=== PATIENT | female | born 1950 | race Two or more races ===

== ENCOUNTER → 2025-03-04 | Outpatient (CLI) | payer MEDICARE, MEDICAID, SELFPAY ==
--- NOTE | 2025-03-04 14:30 | XR_ITS ---
Examination: Bone densitometry Date and time of exam:March 04, 2025 1516 hours INDICATIONS: Hysterectomy age 14 Technique: Lumbar spine and hip total bone mineralization values of an calculated. Peak reference and age match control results have been displayed. Findings: Lumbar spine total bone mineralization is1.023 gm/cm2. This is 0.2 standard deviations below peak reference. This is 2.2 standard deviations above age-matched controls. Hip total bone mineralization is 1.119 gm/cm2 This is 1.2 standard deviations above peak reference. This is 3.0 standard deviations above age-matched controls Impression: There is normal mineralization based on lumbar spine measurements. There is normal mineralization based on hip measurements
--- NOTE | 2025-03-04 15:15 | XR_ITS ---
Examination: Screening digital mammography, bilateral Computer aided detection 3-D breast Tomosynthesis, bilateral Date and time of exam: March 04, 2025 1442 hours Compared to mammograms dating to August 06, 2016 Indication: Screening Technique: Nonmagnified MLO, CC views of the breasts to been obtained, reconstructed from 3-D Tomosynthesis images. R2 computer aided detection program utilized for evaluation of suspicious masses and/or abnormal calcifications. 3-D Tomosynthesis images obtained. Findings: Scattered areas of fibroglandular density. Numerous bilateral benign calcifications. No interval suspicious masses Impression: BI-RADS category II: Benign Findings. Recommend 1 year follow-up mammogram.
== END | disposition home or self-care (01) ==
LOC: CDIM 14:23
PROVIDERS: Referring Provider Nurse Practitioner Family; Visit Provider Nurse Practitioner Family
DX: Z12.31 Encounter for screening mammogram for malignant neoplasm of breast (principal); R92.323 Mammographic fibroglandular density, bilateral breasts; R92.1 Mammographic calcification found on diagnostic imaging of breast; M81.0 Age-related osteoporosis without current pathological fracture
CPT/HCPCS: 77063; 77067; 77080

== ENCOUNTER 2025-08-19 19:43 | Emergency (ER) | payer MEDICARE, MEDICAID, SELFPAY ==
[2025-08-19 19:43] VITALS: BMI 40.7
--- NOTE | 2025-08-19 20:07 | PD.EDABDPN ---
ED Abdominal Pain RME/HPI General Chief Complaint: Abdominal Pain Stated complaint: CONSTIPATION Time seen by provider: 08/19/25 19:58 Arrival date/time: 08/19/25 19:43 RME / HPI RME / HPI narrative: Dr. Weir?s Main ED Evaluation: 75yo female presenting with constipation/rectal urgency and some degree of pain. No recent fever or chills. No vomiting reported. Last normal bowel movement was ~5 days [employer]. Patient's [id number] administered Dulcolax liquid earlier today. PMH includes HTN, HLD, no history of DM, previous IL, or CHF. PSH includes cholecystectomy, hysterectomy. Nondrinker, nonsmoker. Related Data Home Medications ?Medication ?Instructions ?Recorded ?Confirmed olanzapine 5 mg tablet 5 mg PO QHS 11/24/18 11/17/23 amlodipine 10 mg tablet 10 mg PO QDAY 11/17/23 11/17/23 bisacodyl 5 mg tablet 5 mg PO QDAY 11/17/23 11/17/23 brexpiprazole 1 mg tablet (Rexulti) 1 mg PO QDAY 11/17/23 11/17/23 celecoxib 200 mg capsule 200 mg PO QDAY 11/17/23 11/17/23 Held on 11/17/23. Instructions: Resume on 11/24/23. cyclobenzaprine 10 mg tablet 10 mg PO QDAY 11/17/23 11/17/23 ibuprofen 400 mg tablet 400 mg PO QID PRN Pain 11/17/23 11/17/23 Held on 11/17/23. Instructions: Resume on 11/24/23. vibegron 75 mg tablet (Gemtesa) 75 mg PO QDAY 11/17/23 11/17/23 Previous Rx's ?Medication ?Instructions ?Recorded bisacodyl 10 mg rectal suppository 10 mg ME QDAY 1 day #12 ea 08/20/25 (Dulcolax (bisacodyl)) hydrocortisone acetate 25 mg 25 mg ME BID #12 ea 08/20/25 rectal suppository (Anusol-HC) polyethylene glycol 3350 17 17 g PO QDAY #238 grams 08/20/25 gram/dose oral powder (ClearLax) Allergies Allergy/AdvReac Type Severity Reaction Status Date / Time No Known Allergies Allergy Verified 10/05/21 21:11 Review of Systems Review of Systems Systems Reviewed: All systems reviewed, normal except as documented Past Medical History Past Medical History NEUROLOGIC: Positive Neurological Disorders and Parkinson's Disease; Negative Seizures CARDIAC: Positive Cardiac Disorders and Hypertension; Negative Congestive Heart Failure RESPIRATORY: Negative Chronic Obstructive Pulmonary Disease (COPD), Tuberculosis or Sleep Apnea GASTROINTESTINAL: Positive Gastrointestinal Disorders and Gastroesophageal Reflux Disease GENITOURINARY: Negative Genitourinary Disorders or Renal Disease REPRODUCTIVE: Positive Previous Pregnancies; Negative Endometriosis or Pelvic Inflammatory Disease MUSCULOSKELETAL: Negative Musculoskeletal Disorders ENDOCRINE: Negative Endocrine Disorders, Diabetes Mellitus Type 1 or Diabetes Mellitus Type 2 HEMATOLOGIC: Positive Anemia; Negative Blood Disorders PSYCHO/SOCIAL: Positive Depression and Anxiety OTHER HISTORY: Negative Autoimmune Disease, Developmental Delay, Falls, Blood Transfusions or Anesthesia Reactions Family History FAMILY HISTORY: Negative Family Anesthesia Reaction Surgical History SURGICAL: Positive Hysterectomy; Negative Cardiac Surgery Social History SMOKING STATUS: Never smoker SUBSTANCE USE: does not use ED Exam Narrative Physical exam: GENERAL APPEARANCE: alert and oriented x 4, obese, well-developed, well-nourished, nontoxic, no acute distress VITALS: All vitals were reviewed and the pulse ox is % on room air, which is normal according to my interpretation. 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, hard brown stool in the rectal vault, hemoccult positive, tender external hemorrhoids without any active bleeding EXTREMITIES: atraumatic; no edema NEUROLOGIC: awake; alert and oriented x4; cranial nerves II-XII grossly intact; no focal sensory or motor deficits PSYCHIATRIC: appropriate mood and affect SKIN: warm, dry, normal color; no rashes Course Quality Measures none Orders Category Date Time Status EKG (ED ONLY) *Do not use* NOW Care 08/20/25 02:13 Completed IV [Insert IV] NOW Care 08/19/25 23:43 Active Occult Blood,Stool (Nursing) NOW Care 08/19/25 23:33 Active Soap Suds [Enema Administration] NOW Care 08/20/25 00:[address] abdomen pelvis wo con Stat Exams 08/19/25 23:51 Taken EKG (ED Only) Stat Exams 08/20/25 02:12 Draft XR abdomen series w chest 1V Stat Exams 08/19/25 20:18 Completed CBC [CBC] Stat Lab 08/19/25 20:30 Completed CMP [Comprehensive Metabolic Panel] Stat Lab 08/19/25 20:30 Completed TSH [Thyroid Stimulating Hormone] Stat Lab 08/19/25 20:30 Completed Urinalysis, C/S if Indicated Stat Lab 08/19/25 22:16 Completed Urine Culture Stat Lab 08/19/25 22:16 Received Morphine* Inj Med 08/20/25 00:02 Discontinued 4 mg IVP X1 ONE Morphine* Inj Med 08/20/25 03:07 Discontinued 4 mg IVP X1 ONE Ondansetron Inj [Zofran Inj] Med 08/20/25 00:03 Discontinued 4 mg IVP X1 ONE Prochlorperazine Inj [Compazine Inj] Med 08/20/25 03:07 Discontinued 2 mg IVP X1 ONE Sodium Chloride 0.9% 1000 ml [Ns] 1,000 ml Med 08/20/25 00:02 Discontinued IV 999 mls/hr Sodium Chloride 0.9% 1000 ml [Ns] 1,000 ml Med 08/20/25 02:29 Discontinued IV 999 mls/hr Sodium Chloride 0.9% 500 ml [Ns] 500 ml Med 08/20/25 03:53 Active IV 999 mls/hr Vital Signs Vital signs: Vital Signs Temperature 98.1 F 08/19/25 21:05 Pulse Rate 116 H 08/19/25 21:05 Respiratory Rate 19 08/19/25 21:05 Blood Pressure 166/86 H 08/19/25 21:05 Pulse Oximetry (%) 93 L 08/19/25 21:05 Oxygen Delivery Method Room Air 08/19/25 21:05 PROCEDURES: Rectal Disimpaction Time out performed rectal disimpaction: No Indication: fecal impaction Procedural Sedation: No Sedation/Analgesia: none Technique: manual disimpaction with gloved finger Result: significant stool output Patient Tolerated Procedure: well and no complications Abdominal Pain MDM MDM Narrative MDM Narrative:: Scribe Attestation: 08/19/25 Jojo Eagle am scribing for and in the presence of Dr. Weir. 75yo female presenting with constipation/rectal urgency and some degree of pain. No recent fever or chills. No vomiting reported. Last normal bowel movement was ~5 days [employer]. Please see PE findings. Lab markers including CBC and chemistries are essentially unremarkable. UA demonstrates pyuria without bacteria. Routine abdominal x-ray demonstrates a colonic ileus. Patient underwent disimpaction of the rectal vault via manual extraction and will be given a soap suds enema. Patient had received an oral laxative [employer] and had began to move her bowels at the end of her ED stay. Will consult hospitalist for consideration of admission to ensure full evacuation. Patient with ongoing bowel evacuation related to initial stimulant laxative in addition to fecal disimpaction. Patient complains of mild discomfort, although remained nontoxic without signs of sepsis. Patient considered stable for discharge after period of observation while patient receives IVF hydration. Dx: fecal impaction, colonic ileus, hemoccult positive stool Patient data External records reviewed:: [facility] previous records (Per chart review, patient was seen here on 10/06/21 for dizziness.) Clinical information provided by:: patient Social determinants that could affect healthcare access:: none Patient has the following chronic illnesses:: Parkinson's, HTN, GERD How is presenting disease/condition affected by chronic disease/condition?: uneffected by Evaluation data The following diagnostics were reviewed and interpreted by me:: lab results, radiology exam(s) and EKG tracing(s) (EKG done at 0236, sinus tachycardia, rate of 113, no acute pathological ST segment changes, 1st degree AV block, occasional ventricular ectopy, left axis deviation, according to my interpretation.) Lab and/or radiology exams considered but not ordered:: none Interpretation Summary: [facility] Report Signed Patient: GLENNA ZUNIGA Record#: [id number] Birthdate: 1950 Age/Sex: 75 / F Location: [facility] Attending Dr: Ordering Physician: Steve Anguiano DO Date of Service: 08/19/25 Procedure(s): XR abdomen series w chest 1V Accession Number(s): [id number] cc: Steve Anguiano DO; Alexus Palafox NP; Santo Basilio MD~ EXAMINATION: Abdomen series 3 views including PA chest TECHNIQUE: Upright PA chest AP upright AP supine abdomen 3 views Date and time: August 19, 2025, 2032 hours INDICATIONS: Abdominal pain and constipation beginning 2 days ago. FINDINGS: Prominent central pulmonary arteries, consider pulmonary artery hypertension Mild prominence left ventricle Moderate colonic ileus Dilated small bowel loops are not depicted No free air Surgical clips in the upper right abdomen IMPRESSION: Pulmonary artery hypertension Moderate colonic ileus Dictated By: Santo Basilio MD Signed By: <Electronically signed by Santo Basilio MD in OV> 08/19/252148 [place] Preliminary Report Draft Patient: GLENNA ZUNIGA. Record#: [id number] Birthdate: 1950 Age/Sex: 75 / F Location: [facility] Attending Dr: Ordering Physician: Date of Service: Procedure(s): Accession Number(s): cc: ~ CT scan of the abdomen and pelvis without intravenous contrast (axial sections with sagittal and coronal reformats) August 20, 2025 0027 hours Clinical History: Obstruction Comparison: None available at the time of this report. Findings: The lung bases are clear. The liver, pancreas, spleen, kidneys and adrenals are unremarkable on this noncontrast study. S/p cholecystectomy. No evidence of bowel obstruction. The appendix is within normal limits. There is no mesenteric or retroperitoneal adenopathy. The urinary bladder is nondistended, limited evaluation. Yao catheter in place. Air within the urinary bladder. There is no free fluid or free air. The osseous structures are unremarkable. Small hiatus hernia. Impacted stones in the rectum. S/p hysterectomy. Impression: 1. Impacted stools in the rectum. 2. No evidence of bowel obstruction. 3. Possible cystitis. Please, correlate clinically. 4. Small hiatus hernia. Report Electronically Signed By: Ozzy Armstrong 08/20/2025 1:32:01 AM [EST] Medications / Prescriptions Medications or Prescriptions considered but not ordered:: none Medication administrations:: Medication Administration History Sodium Chloride (Ns) 500 mls @ 999 mls/hr IV .Q31M ONE Stop: 08/20/25 04:23 Discontinued Medications Sodium Chloride (Ns) 1,000 mls @ 999 mls/hr IV .Q1H1M ONE Stop: 08/20/25 01:02 Last Infusion: 08/20/25 01:45 Dose: Infused Documented By: Admin: 08/20/25 00:35 Dose: 999 mls/hr Documented By: SYD Sodium Chloride (Ns) 1,000 mls @ 999 mls/hr IV .Q1H1M ONE Stop: 08/20/25 03:29 Last Admin: 08/20/25 02:37 Dose: 999 mls/hr Documented By: NAVI Morphine Sulfate (Morphine Sulf Inj 4 Mg/Ml Vial) 4 mg IVP X1 ONE Stop: 08/20/25 00:03 Last Admin: 08/20/25 00:35 Dose: 4 mg Documented By: SYD Morphine Sulfate (Morphine Sulf Inj 4 Mg/Ml Vial) 4 mg IVP X1 ONE Stop: 08/20/25 03:08 Last Admin: 08/20/25 03:18 Dose: 4 mg Documented By: SYD Ondansetron HCl (Ondansetron Inj 2 Mg/Ml Inj 2 Ml) 4 mg IVP X1 ONE; Protocol Stop: 08/20/25 00:04 Last Admin: 08/20/25 00:36 Dose: 4 mg Documented By: SYD Prochlorperazine Edisylate (Prochlorperazine Inj 5 Mg/Ml Vial 2 Ml) 2 mg IVP X1 ONE; Protocol Stop: 08/20/25 03:08 Last Admin: 08/20/25 03:18 Dose: 2 mg Documented By: SYD see above, if any Consultations Consultation(s) initiated? (list below): Yes Consultation #1 (Physician, Specialty, Details): Discussed case with the resident physician, attending Dr. Justin from Hospitalist service regarding admission. Discussed patients ED course, exam findings, labs, and radiology results. The Hospitalist will evaluate the patient for admission. Time: 23:54 Consultation #2 (Physician, Specialty, Details): Discussed case with the resident physician, attending Dr. Justin from Hospitalist service regarding admission. Discussed patients ED course, exam findings, labs, and radiology results. Recommends discharging the patient home. Time: 02:25 Diagnosis Differential diagnosis abdominal pain: abdominal pain, constipation, small bowel obstruction and other (ileus, dehydration) Most likely diagnosis given after review of the tests above:: see clinical impression below Admission Indicated Admission indicated?: not indicated Admission Request Was there a request for admission?: No Disposition Plan Disposition Plan: Discharge Discharge Attestation Discharge Attestation: The patient and all family members were given an opportunity to ask questions and understood the discharge instructions. Discharge instructions specifically effects, indications for sooner follow up or return to the emergency department, and the expected course of current diagnosis. Patient condition: Stable Discharge Plan Plan Patient Disposition: HOME (Self Care) Discharge Disposition comment: Stable Prescriptions/Referrals Prescriptions/Med Rec: New polyethylene glycol 3350 [ClearLax] 17 gram/dose powder 17 g PO QDAY Qty: 238 0RF hydrocortisone acetate [Anusol-HC] 25 mg suppository 25 mg ME BID Qty: 12 0RF bisacodyl [Dulcolax (bisacodyl)] 10 mg suppository 10 mg ME QDAY 1 Days Qty: 12 0RF No Action olanzapine 5 mg tablet 5 mg PO QHS Patient Comments: take 1/2 tab daily celecoxib 200 mg capsule 200 mg PO QDAY cyclobenzaprine 10 mg tablet 10 mg PO QDAY Patient Comments: TAKE ONE TABLET BY MOUTH EVERY DAY AT BED TIME amlodipine 10 mg tablet 10 mg PO QDAY Patient Comments: TAKE ONE TABLET BY MOUTH EVERY DAY FOR BLOOD PRESSURE ibuprofen 400 mg tablet 400 mg PO QID PRN (Reason: Pain) Patient Comments: TAKE ONE TABLET BY MOUTH EVERY 6 HOURS WITH FOOD NEEDED FOR PAIN bisacodyl 5 mg Tablet 5 mg PO QDAY Rexulti 1 mg tablet 1 mg PO QDAY Patient Comments: TAKE ONE TABLET BY MOUTH EVERY DAY FOR 30 DAYS Gemtesa 75 mg tablet 75 mg PO QDAY Patient Comments: TAKE ONE TABLET BY MOUTH EVERY DAY Referrals: Alexus Palafox NP [Primary Care Provider] - In 1 week Problem List Clinical Impression: Fecal impaction, Ileus, Hematest positive stools, Constipation Patient/Caregiver Discharge Instructions Discharge Activity: activity as tolerated Diet Instructions: Clear liquid diet for 48 hours. Education Materials: Ileus, Treating Constipation, ED Constipation (Adult), ED Fecal Impaction, Treated Additional Instructions: Clear liquid diet x 24 to 48 hours. Medications as directed. Follow-up with primary care doctor in 3 to 5 days. Return if worsening Print Language: Italian Stand Alone Forms: Polly Award Info., Patient Portal Info Letter
--- NOTE | 2025-08-19 20:18 | XR_ITS ---
EXAMINATION: Abdomen series 3 views including PA chest TECHNIQUE: Upright PA chest AP upright AP supine abdomen 3 views Date and time: August 19, 2025, 2031 hours INDICATIONS: Abdominal pain and constipation beginning 2 days ago. FINDINGS: Prominent central pulmonary arteries, consider pulmonary artery hypertension Mild prominence left ventricle Moderate colonic ileus Dilated small bowel loops are not depicted No free air Surgical clips in the upper right abdomen IMPRESSION: Pulmonary artery hypertension Moderate colonic ileus
[2025-08-19 20:42] LABS: Basophils # (Auto) 0.0 Thou/mm3 (0.0-0.2); Basophils % (Auto) 0 % (0-2.5); Eosinophils # (Auto) 0.2 Thou/mm3 (0.0-0.5); Eosinophils % (Auto) 2 % (0-10); Hematocrit 42.1 % (36.0-46.0); Hemoglobin 14.7 g/dL (12.0-16.0); Immature Granulocytes Auto 0.02 Thou/mm3 (0.00-0.00); Lymphocytes # (Auto) 3.2 Thou/mm3 (1.0-4.8); Lymphocytes % (Auto) 33 % (10-50); Mean Corpuscular HGB Conc 34.9 g/dl (31.0-37.0); Mean Corpuscular Hemoglobin 31.8 pg (25.0-35.0); Mean Corpuscular Volume 91 fL (80-100); Monocytes # (Auto) 0.6 Thou/mm3 (0.0-0.8); Monocytes % (Auto) 7 % (0-12); Neutrophils # (Auto) 5.7 Thou/mm3 (1.8-7.7); Neutrophils % (Auto) 58 % (37-80); Nucleated Red Blood Cell # 0.00 Thou/mm3 (0.00-0.00); Nucleated Red Blood Cell % 0 /100 WBC (0); Platelet Count 279 Thou/mm3 (140-440); RDW Standard Deviation 43.4 fL (36.4-46.3); Red Blood Count 4.62 Miln/mm3 (4.00-5.20); White Blood Count 9.7 Thou/mm3 (3.6-11.0)
[2025-08-19 20:59] LABS: Alanine Aminotransferase 47 U/L (10-49); Albumin, Serum 4.4 gm/dL (3.4-4.8); Albumin/Globulin Ratio 1.3 (1.2-2.2); Alkaline Phosphatase 152 U/L (46-116); Anion Gap 10 (7-16); Aspartate Amino Transferase 36 U/L (0-34); BUN/Creatinine Ratio 12 Ratio (12-20); Bilirubin,Total 0.6 mg/dL (0.3-1.2); Blood Urea Nitrogen 11 mg/dL (9-23); Calcium 10.7 mg/dL (8.3-10.6); Calcium (Corrected) 10.7 mg/dL (8.5-10.1); Carbon Dioxide 23.9 mMol/L (20.0-31.0); Chloride 106 mMol/L (98-107); Creatinine (Component) 0.9 mg/dL (0.6-1.3); Estimated Creatinine Clearance 61.4 mL/min (>60); Globulin 3.4 gm/dL (2.3-3.5); Glucose 137 mg/dL (74-106); Osmolality,Calculated 280 (275-295); Potassium 3.8 mMol/L (3.4-5.1); Sodium 140 mMol/L (136-145); Thyroid Stimulating Hormone 4.80 uIU/mL (0.55-4.78); Total Protein 7.8 gm/dL (5.7-8.2); eGFR > 60 See Note
[2025-08-19 21:05] VITALS: BP 166/86; PULSE 116; RESP 19; TEMP 36.7; O2SAT 93
[2025-08-19 23:23] LABS: Collection Type, Urine Clean Catch
[2025-08-19 23:34] LABS: Bilirubin,Urine Negative (Negative); Blood,Urine Negative (Negative); Clarity,Urine Clear (Clear/Hazy); Color,Urine Yellow (Lt Yel-Yel); Glucose, Urine Negative (Negative); Hyaline Casts,Urine < 1 /hpf (0-1); Ketones,Urine Negative (Negative); Leukocyte Esterase,Urine Negative (Negative); Nitrite,Urine Negative (Negative); PH,Urine 7.0 (5.0-7.0); Protein,Urine Negative (Neg - Trace); RBC,Urine 2 /hpf (0-3); Specific Gravity,Urine 1.020 (1.001-1.035); Squamous Epithelial Cell,Urine 2 /hpf (0-5); Urobilinogen,Urine 3.0 mg/dL (0.0-1.0); WBC,Urine 23 /hpf (0-5)
[2025-08-19 23:35] LABS: Culture Indicated,Urine Yes
[2025-08-19 23:43] VITALS: BP 164/78; PULSE 110; RESP 16; TEMP 36.8; O2SAT 96
--- NOTE | 2025-08-19 23:51 | XR_ITS ---
Examination: CT abdomen and pelvis without contrast. Coronal 3-D reconstructions. Sagittal 2-D reconstructions. Date and time of exam: August 20, 2025, 0028 hours Indication constipation abdominal pain beginning 4 days ago CTDI: vol (mGy): 16.71 DLP: (mGycm): 964 Technique: Axial images of the abdomen have been obtained, 3 mm slice thickness Intravenous contrast material has not been administered. Low dose protocols were performed. One or more of the following dose reduction techniques were used; automated exposure control, adjustment of the mA and/or KV according to patient size, use of iterative reconstruction technique. Findings: No visualized liver or splenic lesion Absent gallbladder No extrahepatic biliary tract dilatation Normal pancreas No renal or ureteral calculi Normal appendix No bowel obstruction Abundant stool in the rectum with thickening of the rectal wall Urinary Yao catheter in the bladder with air density Mild thickening of the urinary bladder wall IMPRESSION: Normal appendix No bowel obstruction Large amounts of stool in the colon with mild thickening of the rectal wall, proctitis pattern Suspicious for cystitis
[2025-08-19 23:57] VITALS: BP 136/62; PULSE 116; RESP 18; TEMP 37.7; O2SAT 96
[2025-08-20] MEDS: MORPHINE SULF INJ 4 MG/ML VIAL IVP ×2 (00:35→03:18)
[2025-08-20] MEDS: SODIUM CHLORIDE 0.9% 1000 ML 1,000 ML 999 ML IV ×2 (00:35→02:37)
[2025-08-20] MEDS: ONDANSETRON INJ 2 MG/ML INJ 2 ML 4 MG IVP (00:36)
--- NOTE | 2025-08-20 01:32 | PRELIM_ITS ---
CT scan of the abdomen and pelvis without intravenous contrast (axial sections with sagittal and coronal reformats) August 20, 2025 0027 hours Clinical History: Obstruction Comparison: None available at the time of this report. Findings: The lung bases are clear. The liver, pancreas, spleen, kidneys and adrenals are unremarkable on this noncontrast study. S/p cholecystectomy. No evidence of bowel obstruction. The appendix is within normal limits. There is no mesenteric or retroperitoneal adenopathy. The urinary bladder is nondistended, limited evaluation. Yao catheter in place. Air within the urinary bladder. There is no free fluid or free air. The osseous structures are unremarkable. Small hiatus hernia. Impacted stones in the rectum. S/p hysterectomy. Impression: 1. Impacted stools in the rectum. 2. No evidence of bowel obstruction. 3. Possible cystitis. Please, correlate clinically. 4. Small hiatus hernia. Report Electronically Signed By: Ozzy Armstrong 08/20/2025 1:32:01 AM [EST]
--- NOTE | 2025-08-20 02:11 | PC.NURSE ---
PT HAD WATERY STOOLS. PT WAS CLEANED AND NEW SHEETS
--- NOTE | 2025-08-20 02:12 | EKG_ITS ---
[facility] Test Date: 2025-08-20 Pat Name: GLENNA ZUNIGA Department: Room: - Gender: Female Public Address Technician: : 1950 Requested By: Gerald Altamirano Order Number: [id number] Reading MD: Gerald Altamirano Measurements Intervals [place] Rate: 113 P: 58 DE: 206 QRS: 66 QRSD: 93 T: 37 QT: 317 QTc: 436 Interpretive Statements SINUS TACHYCARDIA WITH OCCASIONAL VENTRICULAR PREMATURE COMPLEXES PROBABLE INFERIOR MYOCARDIAL INFARCTION , PROBABLY OLD [35 ms Q WAVE IN II/aVF] Compared to ECG 04/29/2018 10:55:18 Ventricular premature complex(es) now present Sinus rhythm no longer present Myocardial infarct finding still present /store/S0/[id number]/ecg/[id number].pdf
--- NOTE | 2025-08-20 02:52 | EVENTNT_ITS ---
<Statement entered by Sai Justin MD - 08/21/25 07:00> Patient seen and examined at bedside with resident. Agree with assessment and plan as documented below. Sai Justin MD Documentation for date of: 08/20/25 Event Note Event Note: This patient is a 75-year-old female with a history of hypertension, hyperlipidemia, and urinary incontinence who presented to [facility] ED on 08/19 for concerns of constipation. Patient had not had a bowel movement for the past 4 to 5 days, and so she decided to come to the ED for further care. According to the patient's [id number] who is at the patient's bedside, the patient did have a bowel movement in the ED lobby prior to being roomed in the ED proper. Abdominal x-ray was initially concerning for possible ileus, however CT scan after manual disimpaction did find that the patient had resolution of this ileus. Patient was still found to have some stool impaction on CT abdomen/pelvis after manual disimpaction, however she did have another bowel movement after administration of an enema. The possible cause of the patient's constipation is her immobility as the patient stopped having any significant physical activity for the past 6+ months (although patient is fully independent on her physical activities) as well as the patient's home oxybutynin that she takes for her urinary incontinence. The patient's FOBT positive result is likely secondary to trauma induced by the manual disimpaction in conjunction to the patient's fecaliths, and given the patient's stable hemoglobin within normal limits and lack of dalton bleeding, the patient can follow-up with outpatient GI, such as Dr. Shields, for further workup. The patient's family notes that the patient has an appoint with her PCP on Friday, and the patient would prefer to go home instead of being admitted, and so hospitalist team will hold off on admitting the patient at this time. We recommend that the patient have close follow-up outpatient, evaluation by outpatient GI, and be sent home with a strong bowel regimen and directions for increased activity. This information was communicated to the ED physician. Patient plan of care was discussed with attending physician Dr. Nhan Altamirano, PGY1
[2025-08-20 03:04] VITALS: BP 142/68; PULSE 115; RESP 16; TEMP 36.6; O2SAT 95
[2025-08-20] MEDS: PROCHLORPERAZINE INJ 5 MG/ML VIAL 2 ML 2 MG IVP (03:18)
[2025-08-20] MEDS: SODIUM CHLORIDE 0.9% 500 ML 500 ML 999 ML IV (04:00)
[2025-08-20 04:41] VITALS: BP 149/82; PULSE 109; RESP 17; O2SAT 98
== END 2025-08-20 04:42 | disposition home or self-care (01) ==
PROVIDERS: Emergency Provider Emergency Medicine; PCP Nurse Practitioner Family
DX: K56.41 Fecal impaction (principal); K56.7 Ileus, unspecified; K44.9 Diaphragmatic hernia without obstruction or gangrene; I10 Essential (primary) hypertension; E78.5 Hyperlipidemia, unspecified; Z90.710 Acquired absence of both cervix and uterus; I25.2 Old myocardial infarction; I27.21 Secondary pulmonary arterial hypertension; R00.0 Tachycardia, unspecified; I44.0 Atrioventricular block, first degree; I49.3 Ventricular premature depolarization
CPT/HCPCS: 36415; 74022; 74176; 80053; 81001; 84443; 85025; 87086; 93005; 96361; 96374; 96375; 96376; 99284; J0780; J2270; J2405; J7030; J7999